=== PATIENT | female | born 1965 | race Two or more races ===

== ENCOUNTER 2025-02-08 10:41 | Emergency (ER) | payer OTHER, SELFPAY ==
[2025-02-08 10:46] VITALS: BP 158/98; PULSE 101; TEMP 36.8; O2SAT 99; BMI 30.7
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
== END 2025-02-08 14:14 | disposition home or self-care (01) ==
PROVIDERS: Emergency Provider Student in an Organized Health Care Education/Training Program
DX: R60.0 Localized edema (principal)
CPT/HCPCS: 93971; 99284

== ENCOUNTER 2025-07-31 13:49 | Outpatient (OUT) | payer OTHER, SELFPAY ==
--- NOTE | 2025-07-31 14:08 | US_ITS ---
The [address] [address] Patient Name: EMORY JOHNSON MRN: [id number] date: 1965 Sex: F Assigned Patient Location: [place] Current Patient Location: Accession/Order Number: [id number] Exam Date: 07/31/2025 14:09 Report Date: 08/01/2025 10:21 At the request of: NON-STAFF PHYSICIAN MD Procedure: US thyroid THYROID ULTRASOUND COMPARISON: None CLINICAL DATA: Left posterior auricular lump/node and ear pain. The right thyroid lobe measures 4.2 x 1.6 x 1.4 cm. The left lobe measures 4.0 x 1.5 x 1.1 cm. The isthmus measures 3 mm. There is normal thyroid echogenicity. No thyroid nodularity is seen. Real-time ultrasound evaluation of the area of the lump as indicated by the patient was performed. This was described as the area of the parotid and not the posterior auricular region as indicated in the order. There is a well-circumscribed mildly heterogeneous hypoechoic nodule measuring 8 x 8 x 7 mm. There is minor peripheral blood flow and through transmission. This appears to be within the parotid gland. This could be an abnormal lymph node however other parotid neoplasia is in the differential. No imaging of the posterior auricular region was performed. US/US thyroid IMPRESSION: NORMAL THYROID. HYPOECHOIC NODULE WITHIN THE PAROTID GLAND AT THE REPORTED SITE OF PALPABLE CONCERN INDICATED BY THE PATIENT, DESCRIBED. CLINICAL CORRELATION AND FOLLOW-UP ARE SUGGESTED. Impression dictated by: Ayanna Dangelo M.D. 08/01/2025 10:21 AM Dictation Location: [address] Electronically authenticated by: [id number] Y Date: 08/01/2025 10:21
--- NOTE | 2025-07-31 14:09 | MM_ITS ---
Patient Name: EMORY JOHNSON MR#: [id number] : 1965 Exam Date: 07/31/2025 Ordering Doctor: NON-STAFF PHYSICIAN RADIOLOGY REPORT PROCEDURE: MM TOMOSYNTHESIS SCREENING BI COMPARISON: MM TOMOSYNTHESIS SCREENING BI, 01/02/2017. INDICATIONS: Screening Calculator Name NCI Breast Cancer Risk Assessment Tool 5 Year Breast Cancer Risk 0.80% Lifetime Breast Cancer Risk 5.20% Personal Breast Cancer No Personal Ovarian Cancer No Treatments None Family Cancers Father with mesothelioma cancer at age 66. LOCATION: [facility] BREAST COMPOSITION: There are scattered areas of fibroglandular density. FINDINGS: RIGHT BREAST: No significant suspicious finding. LEFT BREAST: Increasing clustered microcalcifications are noted in the lateral aspect of the left breast when compared to the prior exam. DIAGNOSTIC CATEGORY 0--INCOMPLETE: NEED ADDITIONAL IMAGING EVALUATION. RECOMMENDATIONS: ADDITIONAL MAMMOGRAPHIC VIEWS REQUIRED: LEFT BREAST - follow-up with magnified views of the left breast is recommended . Dictated by: Nirav Carrasco MD on 08/01/2025 at 11:39 Approved by: Nirav Carrasco MD on 08/01/2025 at 11:46
--- NOTE | 2025-07-31 14:09 | XR_ITS ---
The [address] [address] Patient Name: EMORY JOHNSON MRN: [id number] date: 1965 Sex: F Assigned Patient Location: [place] Current Patient Location: [place] Accession/Order Number: [id number] Exam Date: 07/31/2025 14:38 Report Date: 07/31/2025 21:11 At the request of: NON-STAFF PHYSICIAN MD Procedure: XR shoulder LT min 2V 3 views left shoulder HISTORY: Left shoulder pain for 3 weeks. Limited range of motion. Adequate alignment without acute displaced fracture. No significant degeneration. Unremarkable soft tissues. XR/XR shoulder LT min 2V IMPRESSION: Unremarkable exam. Impression dictated by: Stas Kumar M.D. 07/31/2025 9:11 PM Dictation Location: [place] [address] Electronically authenticated by: [id number] Y Date: 07/31/2025 21:11
[2025-07-31 14:25] LABS: Hematocrit 41.2 % (36.0-48.0); Hemoglobin 13.0 g/dL (12.0-16.0); Immature Granulocytes Abs Auto 0.02 10^3/uL (0.00-0.03); Immature Granulocytes Pct Auto 0.2 % (0.0-0.5); Lymphocytes Absolute Auto 2.2 10^3/uL (1.2-3.8); Mean Corpuscular HGB Conc 31.6 g/dL (29.9-35.2); Mean Corpuscular Hemoglobin 28.4 pg (26.7-34.0); Mean Corpuscular Volume 90.0 fL (81.0-99.0); Platelet Count 332 10^3/uL (150-450); Red Blood Count 4.58 10^6/uL (4.20-5.40); White Blood Count 9.0 10^3/uL (4.0-11.0)
[2025-07-31 15:41] LABS: Alanine Aminotransferase 31 U/L (14-59); Albumin Globulin Ratio 0.9; Albumin Level 3.6 g/dL (3.4-5.0); Alkaline Phosphatase 108 U/L (46-116); Anion Gap 11.5; Aspartate Amino Transferase 19 U/L (15-37); Blood Urea Nitrogen 11.0 mg/dL (7.0-18.0); Calcium 9.6 mg/dL (8.5-10.1); Carbon Dioxide 31.1 mmol/L (21.0-32.0); Chloride 101 mmol/L (98-107); Cholesterol 183 mg/dL (<=200); Estimated GFR (African America >60 (>=60 mL/min/1.73m^2); Estimated GFR (Non-African Ame >60 (>=60 mL/min/1.73m^2); Globulin 4.2 g/dL; Glucose 93 mg/dL (74-106); HDL Cholesterol 41 mg/dL (40-60); Potassium 3.6 mmol/L (3.5-5.1); Sodium 140 mmol/L (136-145); Total Protein 7.8 g/dL (6.4-8.2); Triglycerides 110 mg/dL (<=150); VLDL CHOLESTEROL 22.0 mg/dL
== END 2025-07-31 13:50 | disposition home or self-care (01) ==
LOC: US 13:51
DX: M25.512 Pain in left shoulder (principal); I10 Essential (primary) hypertension; Z12.31 Encounter for screening mammogram for malignant neoplasm of breast; H92.02 Otalgia, left ear; R09.89 Other specified symptoms and signs involving the circulatory and respiratory systems; Z13.6 Encounter for screening for cardiovascular disorders; Z13.1 Encounter for screening for diabetes mellitus; Z80.8 Family history of malignant neoplasm of other organs or systems; R92.8 Other abnormal and inconclusive findings on diagnostic imaging of breast
CPT/HCPCS: 36415; 73030; 76536; 77063; 77067; 80053; 80061; 83036; 85025